=== PATIENT | female | born 1975 | race Caucasian/White ===

== ENCOUNTER → 2021-08-23 12:42 | Outpatient (CLI) | payer OTHER, SELFPAY ==
--- NOTE | ~2021-08-23 | MM_ITS ---
EXAMINATION: MM screening vannessa BI w deja HISTORY: Screening mammogram TECHNIQUE: Craniocaudal and mediolateral oblique 3-D tomosynthesis images were obtained and synthetic 2-D images were generated. Bilateral rotated lateral cc views. CAD analysis was submitted and interp reted. COMPARISON: No prior mammogram is available for comparison at this institution. BREAST PARENCHYMAL COMPOSITION: There are scattered areas of fibroglandular density. FINDINGS: There is no evidence of suspicious mass, calcification, or architectural distortion to sugg est malignancy in either breast. There has been no suspicious interval change. IMPRESSION: 1. No mammographic evidence of malignancy. 2. Routine mammographic screening is recommended BI-RADS Category 1: Negative Reviewed, dictated and finalized at location A.
== END ==
PROVIDERS: Visit Provider Surgery Plastic and Reconstructive Surgery
DX: Z12.31 Encounter for screening mammogram for malignant neoplasm of breast (principal)
CPT/HCPCS: 77063; 77067

== ENCOUNTER → 2021-12-17 01:47 | Outpatient (CLI) | payer OTHER, SELFPAY ==
[2021-12-17 19:53] LABS: SARS-CoV-2 RNA PCR Negative
== END ==
PROVIDERS: Visit Provider Surgery Plastic and Reconstructive Surgery
DX: Z01.812 Encounter for preprocedural laboratory examination (principal); Z20.822 Contact with and (suspected) exposure to COVID-19
CPT/HCPCS: C9803; U0003; U0005

== ENCOUNTER 2021-12-20 06:01 | Day surgery (SDC) | payer OTHER, SELFPAY ==
[2021-12-10 09:51] VITALS: BMI 24.5
--- NOTE | 2021-12-19 08:52 | SUR.PREOP ---
PRE-OPERATIVE INSTRUCTIONS [address] [address] 1. Report to the Surgery Center Waiting Room, the entrance is the first door on the right after passing through the automatic sliding doors, at time __6:00_on date 12/20/21___. OR Time:_7:30____ . When you arrive, you and your visitor will be screened for Covid prior to entry. A mask is required within the surgery center. 2. Preoperative Covid Testing Requirements: No Covid Test Needed if: (proof is required) ? Patient has received Covid Vaccine at least 14 days prior to procedure date or ? Patient has positive Covid test result within last 90 days of surgery date. Covid Test needed if above criteria is not met: Covid testing must be conducted within 72 hours of surgery and patient is asked to isolate self from time of testing until procedure. You will be scheduled for your Preoperative testing. Your time for testing is on 7:30_ (date) at time 12/17/2021__. You will go to the (Testing Site) for your preoperative testing. The Testing Site is located at [address] [place] [address]. [facility] on [address] You will only be called if test is a positive result. 3. Patients may have clear liquids (water, carbonated beverages, clear teas, apple juice) until 3 hours prior to surgery with a maximum of 20 ounces. ? No food from midnight until time of surgery. ? Infants may have breast milk until 4 hours before surgery, infant formula 6 hours prior to surgery. ? Children will be allowed to drink immediately following surgery. If applicable, please bring a bottle or sippy cup to assist with drinking. Juice, water, soda, and popsicles are readily available. For infants on formula, please bring formula the day of surgery. Pacifiers are allowed. 4. Take the following medications with a SIP of water the morning of surgery: 1. n/a 2. 3. Medications to discontinue per physician order: 1. n/a date to discontinue: 5. No make-up, nail latvian, hairspray, perfume, deodorant, or body powder the day of surgery. No jewelry (including any body piercings) or valuables the day of surgery. Please take a shower or bath the night before, or the morning of, surgery with an antibacterial soap. Wear comfortable, loose fitting clothing. Children are encouraged to wear pajamas. ? Jewelry must be removed prior to entering the operating room. Rings and piercings that are not removed will be cut off. The center will not accept responsibility for valuables. Please leave all valuables, including medications, at home the day of surgery. 6. When going home after surgery, a licensed uke driver must drive you home. NO public transportation without another adult. We recommend someone to stay with you, no alcoholic beverages, driving or important decision making for 24 hours after surgery. For pediatric surgeries, we recommend two adults to accompany a child home. (Only one will be allowed into the building with the patient) 7. 1 visitor (over age of 18) will be allowed. The visitor will drop patient off and remain in car until patient is prepared for surgery. Visitor will be called to join patient. Exceptions: Adult of a pediatric patient, patients with intellectual and/or developmental disability or cognitive impairments can accompany patient through-out visit. Visitors will need to be screened prior to coming into the center. Screening will include Covid symptom question checking. Visitor must wear a mask. Visitor will remain in patient?s room for duration of stay. 8. Follow any additional instructions given by your physician. Telephone instruction given to: patientRonnie____
[2021-12-20 06:25] VITALS: BP 140/79; PULSE 98; RESP 16; TEMP 36.9; O2SAT 100
[2021-12-20 06:26] VITALS: BMI 26.4
--- NOTE | 2021-12-20 06:55 | WPDHPUPDATE1 ---
History and Physical Update Update Date/Time: 12/20/21 06:55 History and Physical has been reviewed, including an updated exam of the patient. There are NO changes in the patient's condition. Risks, benefits, and alternatives have been discussed and questions answered. Patient agrees to proceed with procedure.
--- NOTE | 2021-12-20 07:07 | P.OP_ITS ---
Procedure Note - Detailed Date of Procedure 12/20/21 Pre-op Diagnosis Macromastia Post-op Diagnosis same Procedure Performed Bilateral Reduction Mammaplasty Surgeon Jaun Jolly MD Anesthesia general Findings Inverted T Superior medial pedicle Tissue removed: Right - [grams] grams Left - [grams] grams Description of Procedure She is here today for bilateral breast reduction. Previously and again today the risks, benefits, alternatives were discussed in extensive detail. I wanted her to be very realistic about the risks involved as well as expectations. We discussed aftercare and what to monitor for. She understands we can never guarantee final breast size and there will always be asymmetry. I was very upfront and honest about the risks of sensation change and even nipple loss (). Made sure answered all of her questions to her satisfaction today and consent was obtained. She was marked in the preoperative holding area with their verification. The patient was taken to the operating room placed supine on the operating table. Anesthesia was provided by anesthesiology. She was prepped and draped in a standard sterile fashion. A surgical time-out was taken. Stab incisions were made and I tumessed with a tumescent solution. I marked out the nipple-areolar complex at 42 mm. I then de-epithelialized the pedicle. The pedicle was well left well more than 2 cm in thickness. I then removed the inferior portion of the breast as well as the central keel to get shape based on preoperative planning. At this point copiously irrigated with saline solution and verified a strict hemostasis. I reapproximated the pillars using a 2-0 PDS. I tailor tacked the breast into place with viri. She was placed in a sitting position. I verified the nipple-areolar complex position based on preoperative markings, intraoperative measurements, and observation which were in full agreement. This nipple-areolar complex was marked at 42 mm in size. I then placed supine and de-epithelialized this. Nipple-areolar complex was inset with 3-0 Monocryl. I closed IMF deep with 1 strattafix. I closed the vertical incision with 3-0 Monocryl in the IMF with 3- 0 stratafix. Then everything was closed using a running subcuticular 4-0 Mon ocryl followed by Steri-Strips. A dressing was placed followed by surgical bra. Patient was awoke and taken to PACU without difficulty. All instrument sponge counts were correct at the end of the case. Estimated Blood Loss 75 Drains No Packing No Pathology yes (bilateral breast tissue) Complications No immediate complications Condition stable Disposition PACU
--- NOTE | 2021-12-20 07:19 | P.PNAN_ITS ---
Anes - Initial Pre Proc Eval Procedure: Operation Date: 12/20/21 07:30 Proposed Procedures p Bilateral Breast Reduction Mammoplasty - Jaun Jolly MD Date/Time: 12/20/21 07:19 Surgeon: Jaun Jolly MD Pre Op Diagnosis: Macromastia Patient Data Age: 46 Gender: F Height: 1.6 m Weight: 67.7 kg Last Vital Signs Temp 36.9 C 12/20/21 06:25 Pulse 98 12/20/21 06:25 Resp 16 12/20/21 06:25 BP 140/79 12/20/21 06:25 Pulse Ox 100 12/20/21 06:25 Allergies Allergy/AdvReac Type Severity Reaction Status Date / Time No Known Allergies Allergy Unknown Verified 12/20/21 07:09 Home Medications Medication Instructions Recorded Confirmed Type docusate sodium 100 mg capsule 100 mg PO BID #14 cap 12/09/21 12/20/21 Rx hydrocodone 5 mg-acetaminophen 325 1 tablet PO Q6H PRN #30 tablet 12/09/21 12/20/21 Rx mg tablet ondansetron HCl 4 mg tablet 4 mg PO Q6H #30 tablet 12/09/21 12/20/21 Rx Patient hx anesthesia problems: none Family hx anesthesia problems: none Results Review: All pre-operative results and documents have been reviewed as part of the pre-operative evaluation. [facility] Social History Social History Smoking status: Never smoker Alcohol intake: never Substance use: never Living arrangements: with family Spiritual care concerns: No Anes - Eval Final PreProcedure Day of Procedure 12/20/21 07:19 Patient weight: normal Heart: regular rate and rhythm Lungs: clear to auscultation Airway: Mallampati scale class II Neurological: alert and oriented Last oral intake: >/= 8 hours ASA classification: I Emergent: no Anesthesia type and monitoring: general LMA and standard monitoring Results Review: All pre-operative results and documents have been reviewed as part of the pre-operative evaluation. Informed Consent: The patient's anesthetic plan and its attendant risks and benefits were discussed with the patient/family/POA. Questions were solicited and answers provided to the satisfaction of the patient/family/POA.
[2021-12-20] MEDS: ceFAZolin SODIUM 2 GM/20 ML SW SYRINGE IV PUSH (07:20)
[2021-12-20] MEDS: LACTATED RINGERS 1,000 ML 30 ML IV CONT ×2 (07:21→09:35)
[2021-12-20] MEDS: LACTATED RINGERS IRRIG 1,000 ML, LIDOCAINE HCL 1% LOCAL INJ 50 ML, EPINEPHrine HCL INJ ... INFILTRATE (07:45)
[2021-12-20 09:35] VITALS: BP 103/81; PULSE 70; RESP 12; TEMP 36.1; O2SAT 100
[2021-12-20 09:50] VITALS: BP 112/72; PULSE 77; RESP 19; O2SAT 100
[2021-12-20 09:59] VITALS: BP 113/73; PULSE 73; RESP 14; O2SAT 100
--- NOTE | 2021-12-20 09:59 | WPDANESPN ---
Anes - Prog Note Post-Op Date/Time: 12/20/21 09:59 Cardiovascular status: normal Respiratory status: normal Airway patency: baseline Mental status: baseline Post-Op hydration status: normal Vital Signs: Last Vital Signs Temp 36.1 C L 12/20/21 09:35 Pulse 77 12/20/21 09:50 Resp 19 12/20/21 09:50 BP 112/72 12/20/21 09:50 Pulse Ox 100 12/20/21 09:50 Pain Score (VAS): 0 Post-procedural complaints: none Patient Feedback: Patient satisfied with anesthetic care.
[2021-12-20 10:00] VITALS: BP 119/72; PULSE 85; RESP 16; O2SAT 100
[2021-12-20 10:30] VITALS: BP 132/84; PULSE 77; O2SAT 100
== END 2021-12-20 10:50 | disposition home or self-care (01) ==
PROVIDERS: Visit Provider Surgery Plastic and Reconstructive Surgery
PROC: 0HBV0ZZ Excision of Bilateral Breast, Open Approach (ICD-10-PCS; CPT 19318; principal; 2021-12-20 07:30)
DX: N62 Hypertrophy of breast (principal); Z41.1 Encounter for cosmetic surgery
CPT/HCPCS: 19318

== ENCOUNTER 2021-12-20 12:58 | Outpatient (NON) | payer OTHER, SELFPAY | END 2021-12-20 12:59 | disposition home or self-care (01) | LOC: ANHLAB 13:04 | PROVIDERS: Visit Provider Surgery Plastic and Reconstructive Surgery | DX: N62 Hypertrophy of breast (principal) | CPT/HCPCS: 88305 ==

== ENCOUNTER 2023-04-09 12:35 | Outpatient (CLI) | payer SELFPAY ==
--- NOTE | ~2023-04-09 | US_ITS ---
EXAMINATION: US pelvic complete w TV DATE: 04/09/2023 13:26 INDICATION: Abnormal uterine bleeding Comparison:No prior studies for comparison. TECHNIQUE: Multiple transabdominal and endovaginal sonographic images of the pelvis performed. FINDINGS: The uterus measures 8 x 4.8 x 5.5 cm. There are uterine fibroids, largest measuring 1.9 cm. There is a 1.4 cm cyst adjacent to the uterus, possibly ovarian or peritoneal inclusion cyst. The en dometrial complex measures 8 mm. The ovaries are not visualized due to overlying bowel. There is no free fluid in the pelvis. There are no abnormal masses seen on either side. IMPRESSION: 1. Cyst measuring 1.4 cm adjacent to the uterus, possibly ovarian or peritoneal inclusion cyst. 2: Uterine fibroids, largest measuring 1.9 cm. Reviewed, dictated and finalized at location L.
== END 2023-04-09 12:36 | disposition home or self-care (01) ==
PROVIDERS: Visit Provider Nurse Practitioner Obstetrics & Gynecology
DX: N93.9 Abnormal uterine and vaginal bleeding, unspecified (principal); N85.8 Other specified noninflammatory disorders of uterus; D25.9 Leiomyoma of uterus, unspecified
CPT/HCPCS: 76830; 76856

== ENCOUNTER 2023-08-20 13:01 | Outpatient (CLI) | payer OTHER, SELFPAY ==
--- NOTE | 2023-08-20 13:19 | ECG_ITS ---
Measurements Intervals [place] Rate: 101 P: 38 VA: 143 QRS: 7 QRSD: 85 T: 33 QT: 335 QTc: 435 Interpretive Statements SINUS TACHYCARDIA BASELINE ARTIFACT- I, II, III, AVR, AVL BORDERLINE ECG NO PREVIOUS ECG AVAILABLE FOR COMPARISON Electronically Signed On 08-20-2023 13:55:36 CDT by Rohith Delaney D.O.
== END 2023-08-20 13:02 | disposition home or self-care (01) ==
LOC: ANHSURGERY 13:06
PROVIDERS: PCP Nurse Practitioner Family; Visit Provider Surgery Plastic and Reconstructive Surgery
DX: Z41.1 Encounter for cosmetic surgery (principal)
CPT/HCPCS: 93005

== ENCOUNTER 2023-08-26 00:59 | Day surgery (SDC) | payer OTHER, SELFPAY ==
[2023-08-19 10:02] VITALS: BMI 25.3
--- NOTE | 2023-08-19 10:06 | PC.NURSE ---
Report to the Outpatient Waiting Room, entrance under the green pavilion located off [facility], at time 6:00 on date 08/26/23. Planned Procedure Time: 7:30. Time changes happen often and if your time is changed the preop area will call you the afternoon before. - You and your visitor will be asked to self-screen and do not enter if you have any COVID symptoms. - A mask is optional within the hospital at this time. Patients may have clear liquids (water, carbonated beverages, clear teas, apple juice) until 3 hours prior to surgery (4:30) with a maximum of 20 ounces. - No food from midnight until time of surgery Take the following medications with a SIP of water the morning of surgery: NONE DO NOT STOP ANY OF YOUR OTHER PRESCRIPTION MEDICATIONS PRIOR TO SURGERY ?EXCEPT THE FOLLOWING Medications to discontinue per physician: VITAMINS/SUPPLEMENTS Date to take last dose: 08/22/23 Please no make-up, nail bengali, hairspray, perfume, deodorant, or body powder the day of surgery. No jewelry (including any body piercings) or valuables the day of surgery, leave them at home. Please take a shower or bath the night before, or the morning of, surgery with an antibacterial soap. Wear comfortable, loose fitting clothing. - Jewelry must be removed prior to entering the operating room. Rings and piercings that are not removed may be cut off. - The hospital will not accept responsibility for valuables. - Please leave all valuables, including medications, at home the day of surgery. If you are going home after surgery, a licensed dedicated local truck driver must drive you home. - NO public transportation without another adult if you receive anesthesia. - We recommend that an adult stay with you for 24 hours following discharge. - We also recommend that you do not drive, make important decision, drink alcoholic beverages, or take any drugs that were not prescribed by your health care provider for at least 24 hours after your discharge time. Follow any additional instructions given to you from your surgeon. If you or anyone in your household have experienced Covid symptoms in the past week, please notify your surgeon or the nurse liaison at the phone number below for possible testing. Telephone instructions given to PT - JOSSY MACHADO and asked if any additional questions and then verbalized understanding. Patient advised to call surgeon office or pre surgery nurse liaison [phone] if any additional questions.
[2023-08-26] VITALS (10 sets, daily range): BP systolic 107–138; BP diastolic 61–85; PULSE 88–108; RESP 12–18; TEMP 36.6; O2SAT 100
[2023-08-26 06:37] LABS: Urine Cotinine NEGATIVE
[2023-08-26] MEDS: LACTATED RINGERS 1,000 ML 30 ML IV CONT ×2 (06:38→11:40)
--- NOTE | 2023-08-26 06:38 | WPDANESEPPF ---
Anes - Initial Pre Proc Eval Procedure: Operation Date: 08/26/23 07:30 Proposed Procedures p Abdominoplasty with Liposuction - Jaun Jolly MD Date/Time: 08/26/23 06:38 Surgeon: Jaun Jolly MD Pre Op Diagnosis: skin laxity Patient Data Age: 48 Gender: F Height: 1.6 m Weight: 64.9 kg Allergies Allergy/AdvReac Type Severity Reaction Status Date / Time No Known Allergies Allergy Unknown Verified 08/26/23 06:16 Home Medications Medication Instructions Recorded Confirmed Type Lactobacillus 1 cap PO DAILY 08/19/23 08/19/23 History acidophilus-Bifidobac.animalis 2.5 billion cell capsule (Daily Probiotic) multivitamin 1 tablet PO DAILY 08/19/23 08/19/23 History Laboratory Tests 08/26/23 06:13 Cotinine Negative Patient hx anesthesia problems: none Family hx anesthesia problems: none Results Review: All pre-operative results and documents have been reviewed as part of the pre-operative evaluation. [facility] Past Medical History Medical History Chronic neck and back pain Macromastia Shoulder pain Surgical History Surgical History Hx of breast reduction, elective Family History Family History Father No problems noted. Mother Graves disease Thyroid disease Hypertension Social History Social History Smoking status: Never smoker Alcohol intake: current Alcohol use details: RARE Substance use: never Substance use type: does not use Other substance usage details: Once in 6 mths - relaxation Lack of Transportation: No Lack of Food: Never True Current Housing: I Have Housing Concerned About Future Housing: No Difficulty Paying Gas/Electric Bills: No Difficulty Paying for Meds: No Currently Unemployed: No Education: High School Diploma/GED Difficulty w/ Childcare or Family Care: No Living arrangements: with family Occupation/Education: occupation Gender identity (if verbalized by the patient): Female Spiritual care concerns: No Anes - Eval Final PreProcedure Day of Procedure 08/26/23 06:38 Patient weight: normal Heart: regular rate and rhythm Lungs: clear to auscultation Airway: Mallampati scale class II Neurological: alert and oriented Last oral intake: >/= 8 hours ASA classification: II Emergent: no Anesthetic plan: proceed Anesthesia type and monitoring: general ETT and standard monitoring Results Review: All pre-operative results and documents have been reviewed as part of the pre-operative evaluation. Informed Consent: The patient's anesthetic plan and its attendant risks and benefits were discussed with the patient/family/POA. Questions were solicited and answers provided to the satisfaction of the patient/family/POA.
--- NOTE | 2023-08-26 06:52 | WPDHPUPDATE1 ---
History and Physical Update Update Date/Time: 08/26/23 06:52 History and Physical has been reviewed, including an updated exam of the patient. There are NO changes in the patient's condition. Risks, benefits, and alternatives have been discussed and questions answered. Patient agrees to proceed with procedure.
--- NOTE | 2023-08-26 06:52 | W.PM.PROC2 ---
Procedure Note - Detailed Date of Procedure 08/26/23 Pre-op Diagnosis skin laxity Post-op Diagnosis Same Procedure Performed Progressive tension abdominoplasty with suction lipectomy Surgeon Jaun Jolly MD Anesthesia General Findings Tissue removed: 1123.3 grams Lipoaspirate: 2,000 cc Description of Procedure They are here today for the above procedures. Previously and again today the risks, benefits, alternatives were discussed in extensive detail. I wanted them to be very realistic about the risks involved as well as expectations. We discussed aftercare and what to monitor for. I was very upfront about the risks of wound breakdown leading to loss of skin, open wounds, and need for additional procedures with permanent abdominal deformity. We discussed DVT/PE risks and management. Made sure answered all of their questions to their satisfaction today and consent was obtained. They were marked in the preoperative holding area with their verification. The patient was taken to the operating room. Anesthesia was provided by anesthesiology. A Mackenzie catheter was started. Placed prone on the operating room table with care taken to protect from injury. Prepped and draped in a standard sterile fashion. A surgical time-out was taken. Stab incisions were made and tumescent solution was infiltrated. Once adequate time was allowed for hemostasis a 5mm basket and 3mm multi hole cannula were utilized to complete suction lipectomy based on S.A.F.E. technique in multiple planes and passes. Suction lipectomy continued to result based on pre-operative planning, intra-operative observation, and rolling pinch test which were in full agreement. Patient was then placed supine with care taken to protect from injury. I placed the patient in a flexed position to verify the upper and lower markings would reach. I then placed supine. A thorough abdominal examination was completed. Stab incisions were made and tumescent solution infiltrated. Stab incisions were made and tumescent solution was infiltrated. Once adequate time was allowed for hemostasis a 5mm basket and 3mm multi hole cannula were utilized to complete suction lipectomy based on S.A.F.E. technique in multiple planes and passes. Suction lipectomy continued to result based on pre-operative planning, intra-operative observation, and rolling pinch test which were in full agreement. A 10 blade was used to make the upper incision. I continued dissection down to the level of fascia. Elevated just what was necessary for repair of the diastasis. I then again flexed the bed to verify the upper skin flap would reach the lower markings without tension. Once verified I placed her supine once again and a 10 blade used to make the lower incision. I elevated up to level the umbilicus and left the umbilicus intact on a well-vascularized stalk. The intervening tissue was removed. A 2 mm blunt cannula with 0.5% bupivicaine was injected deep to the fascia bilaterally. I plicated the diastasis recti using 0 PDO stratafix barbed suture. This was in 2 separate layers using 2 separate sutures as well. I repaired around the umbilicus leaving plenty of room for well-vascularized stalk of the umbilicus with 2-0 PDS. I also repaired lateral to the rectus using two layers of 0 PDO stratafix. The patient was flexed and starting from superior to inferior began plication using 2-0 Vicryl to obliterate all space in a standard progressive tension fashion. At the umbilicus I marked out the location of the skin and inset this with 3-0 Monocryl and 4-0 Vicryl. I continued the remainder of the plication using 2-0 Vicryl until I reached my lower planned scar line. I trimmed any excess skin of the upper flap making sure this was a tension-free closure. 15 Jasper drain placed. I then approximated using a 3 point suture with 2-0 Vicryl followed by 3-0 stratafix ,running subcuticular 4-0 Monocryl, and tissue glue.
[2023-08-26] MEDS: SCOPOLAMINE 1.5 MG PATCH TRANSDERM (07:10)
[2023-08-26] MEDS: TRANEXAMIC ACID 1,000MG/ISO100 1,000 MG/100 ML BAG 200 MG IVPB (07:41)
[2023-08-26] MEDS: ceFAZolin 2 GM/D5W 50 ML 2 GM/50 ML BAG IVPB (07:41)
[2023-08-26] MEDS: BUPIVACAINE/EPINEPHRINE 0.5% 50 ML VIAL 60 ML INFILTRATE (08:22)
--- NOTE | 2023-08-26 09:28 | SUR.OPER ---
PATIENT LOG ROLLED FROM PRONE TO SUPINE 0843. SUPINE PREP 0857. SUPINE START TIME 0905
[2023-08-26] MEDS: LACTATED RINGERS IRRIG 1,000 ML, LIDOCAINE HCL 1% LOCAL INJ 50 ML, EPINEPHrine HCL INJ ... INFILTRATE (10:58)
[2023-08-26] MEDS: fentaNYL CITRATE INJ (*CRX) 100 MCG/2 ML VIAL 25 MCG IV PUSH (12:26)
[2023-08-26] MEDS: oxyCODONE HCL (*CRX) 5 MG TAB IR PO (13:04)
== END 2023-08-26 14:27 | disposition home or self-care (01) ==
PROVIDERS: PCP Nurse Practitioner Family; Visit Provider Surgery Plastic and Reconstructive Surgery
PROC: (CPT 15877; principal; 2023-08-26 07:30)
DX: Z41.1 Encounter for cosmetic surgery (principal); L57.4 Cutis laxa senilis
CPT/HCPCS: 15877; 15830; 15847; 80307; A9270; J0171; J0330; J0690; J1100; J1170; J2250; J2405; J2704; J3010; J7120